=== PATIENT | female | born 1960 | race Caucasian/White ===

== ENCOUNTER 2022-04-24 09:53 | Emergency (ER) | payer BC | END 2022-04-24 13:40 | disposition home or self-care (01) | LOC: JD.ED 09:53 | DX: M25.511 Pain in right shoulder (principal); R06.00 Dyspnea, unspecified; I10 Essential (primary) hypertension | CPT/HCPCS: 36415; 71045; 71045-26; 80053; 83690; 83735; 84484; 85025; 85379; 93010; 99284; 99285 ==